=== PATIENT | female | born 1950 | race African-American/Black ===

== ENCOUNTER → 2016-10-29 | Outpatient (CLI) | payer MEDICARE, OTHER ==
[~2016-10-29] MED LIST: ATENOLOL/CHLOR1 EAC1 PO; ATORVASTATIN CA40 MG PO; FIORICET 50-301 EACH PO; HYDROCHLOROTHIA25 MG PO; LORATADINE10 M2 PO; METFORMIN HCL500 M1 PO; OMEPRAZOLE20 MG PO; ONE TOUCH DELI1 EAC2 MC; ONE TOUCH ULTR1 EAC4 MC; PREDNISONE50 MG PO
== END | disposition home or self-care (01) ==
LOC: CDC 11:56
DX: R94.31 Abnormal electrocardiogram [ECG] [EKG] (principal)
CPT/HCPCS: 93000